=== PATIENT | male | born 1935 | race Caucasian/White ===

== ENCOUNTER 2017-07-01 09:46 | Emergency (ER) | payer MEDICARE, OTHER ==
[2017-07-01] MEDS ORDERED: Nitroglycerin/D5W 25 MG/250 ML BOTTLE IV SCH (10:00)
--- NOTE | 2017-07-01 10:01 | EDM.PDOC ---
ED HPI GENERAL MEDICAL PROBLEM - General Chief Complaint: Cardiovascular Problem Stated Complaint: PAIN DOWN LT SHOULDER/ARM Time Seen by Provider: 07/01/17 09:50 Source of Information: Reports: Patient, Family History Limitations: Reports: No Limitations - History of Present Illness INITIAL COMMENTS - FREE TEXT/NARRATIVE: 82-year-old male with known coronary vascular disease and peripheral artery disease presents with upper chest pain radiating to the throat and left arm off and on for the past couple of days but more persistent this morning. He thought it was musculoskeletal initially, but this morning he took some nitroglycerin and it helped. The pain then resumed at a level of 6-7 out of 10. No significant shortness of breath or diaphoresis. His pro-time 6 days ago was 1.8 INR. No medication adjustments were done. He denies nausea or vomiting. Onset: Unknown/Unsure (Waxing and waning for several days) Location: Reports: Chest, Upper Extremity, Left Quality: Reports: Ache Severity: Moderate Improves with: Reports: Other (Nitroglycerin helped this morning) Associated Symptoms: Reports: Chest Pain. Denies: Confusion, Cough, Nausea/ Vomiting Left Arm Pain Score (Numeric/FACES): 7 - Related Data Allergies Allergy/AdvReac Type Severity Reaction Status Date / Time bee venom protein (honey bee) Allergy Anaphylactic Verified 07/01/17 09:59 Shock Penicillins Allergy Swelling Verified 07/01/17 09:59 Sulfa (Sulfonamide Allergy Swelling Verified 07/01/17 09:59 Antibiotics) Home Meds: Home Meds Clopidogrel Bisulfate [Clopidogrel] 75 mg pe PO DAILY 07/01/17 [History] Lisinopril [Lisinopril] 40 mg PO DAILY 07/01/17 [History] Metoprolol Tartrate [Metoprolol Tartrate] 25 mg PO BID 07/01/17 [History] Omeprazole 20 mg PO DAILY 07/01/17 [History] Simvastatin [Zocor] 40 mg PO BEDTIME 07/01/17 [History] Spironolactone [Aldactone] 25 mg PO DAILY 07/01/17 [History] Warfarin Sodium [Coumadin] 7.5 mg PO ASDIRECTED 07/01/17 [History] Warfarin [Coumadin] 5 mg PO ASDIRECTED 07/01/17 [History] glipiZIDE [Glucotrol] 10 mg PO DAILY 07/01/17 [History] metFORMIN [Glucophage] 1,000 mg PO BID 07/01/17 [History] ED ROS GENERAL - Review of Systems Review Of Systems: See Below Constitutional: Denies: Fever, Chills, Malaise HEENT: Reports: No Symptoms Respiratory: Denies: Shortness of Breath, Cough Cardiovascular: Denies: Palpitations GI/Abdominal: Denies: Abdominal Pain, Nausea, Vomiting : Reports: No Symptoms Musculoskeletal: Reports: Arm Pain Skin: Reports: Bruising (some bruising on his extremities) Neurological: Reports: No Symptoms. Denies: Dizziness, Headache Psychiatric: Reports: No Symptoms ED EXAM, GENERAL - Physical Exam Exam: See Below Exam Limited By: No Limitations General Appearance: Alert, No Apparent Distress Eye Exam: Bilateral Eye: EOMI, Normal Inspection Respiratory/Chest: No Respiratory Distress, Lungs Clear, Other (I could not reproduce any chest wall tenderness) Cardiovascular: Regular Rate, Rhythm GI/Abdominal: Soft, Non-Tender Extremities: Normal Inspection. No: Pedal Edema Neurological: Alert, Oriented Psychiatric: Normal Affect, Normal Mood Skin Exam: Warm, Dry, Other (some bruising on the left arm which is old) EKG INTERPRETATION QRS: LBBB Comparison: No Change (EKG is unchanged from one year ago) Course - Vital Signs Last Recorded V/S: Last Vital Signs Temp 96.1 F 07/01/17 09:52 Pulse 59 L 07/01/17 10:30 Resp 16 07/01/17 10:30 BP 160/70 H 07/01/17 10:30 Pulse Ox 97 07/01/17 10:30 - Orders/Labs/Meds Orders: Active Orders 24 hr Category Date Time Status EKG Documentation Completion [RC] ASDIRECTED Care 07/01/17 09:57 Active EKG 12 Lead [EK] Routine Ther 07/01/17 09:57 Ordered Labs: Laboratory Tests 07/01/17 07/01/17 07/01/17 Range/Units 10:03 10:03 10:03 WBC 8.5 (4.5-11.0) K/uL RBC 4.68 (4.30-5.90) M/uL Hgb 13.5 (12.0-15.0) g/dL Hct 39.9 L (40.0-54.0) % MCV 85 (80-98) fL MCH 29 (27-31) pg MCHC 34 (32-36) % Plt Count 221 (150-400) K/uL Neut % (Auto) 69 H (36-66) % Lymph % (Auto) 18 L (24-44) % Ada % (Auto) 10 H (2-6) % Eos % (Auto) 3 (2-4) % Baso % (Auto) 1 (0-1) % PT 28.1 H (9.5-12.0) sec INR 2.53 H (0.80-1.20) Sodium 140 (140-148) mmol/L Potassium 4.4 (3.6-5.2) mmol/L Chloride 104 (100-108) mmol/L Carbon Dioxide 30 (21-32) mmol/L Anion Gap 6.3 (5.0-14.0) mmol/L BUN 22 H (7-18) mg/dL Creatinine 1.1 (0.8-1.3) mg/dL Est Cr Clr Drug Dosing 50.09 mL/min Estimated GFR (MDRD) > 60 (>60) Glucose 200 H (74-106) mg/dL Calcium 8.9 (8.5-10.1) mg/dL Total Bilirubin 0.3 (0.2-1.0) mg/dL AST 12 L (15-37) U/L ALT 16 (12-78) U/L Alkaline Phosphatase 79 (46-116) U/L Troponin I < 0.017 (0.000-0.056) ng/mL Total Protein 7.5 (6.4-8.2) g/dL Albumin 3.5 (3.4-5.0) g/dL Globulin 4.0 H (2.3-3.5) g/dL Albumin/Globulin Ratio 0.9 L (1.2-2.2) Meds: Medications Discontinued Medications Generic Name Dose Route Start Last Admin Trade Name Freq PRN Reason Stop Dose Admin Nitroglycerin/Dextrose 25 mg in 250 mls @ 6 mls/hr 07/01/17 10:00 07/01/17 10 :09 Nitroglycerin 25 Mg/D5w 250 Ml IV 10 mcg/min TITRATE JORDANA 6 mls/hr Protocol Administration 10 MCG/MIN - Re-Assessments/Exams Free Text/Narrative Re-Assessment/Exam: 07/01/17 10:21 Systolic blood pressure was over 160, and because his pain was persisting and nitroglycerin seemed to help earlier a nitro drip at 10 mcg/m was initiated. CBC , CMP and troponin were obtained as well as an INR. 07/01/17 10:43 INR returned therapeutic at 2.5. Troponin was 0.0. The nitroglycerin drip did nothing for his discomfort, and again he felt like it improved if he lifted up his arm. He feels like the symptoms are very similar to when he had carpal tunnel. 07/01/17 10:45 I had a long discussion with the patient and his , I do not think he meets the criteria for an angiogram and his symptoms have already been waxing and waning for days and his troponin is 0. He has no other cardiac symptoms such as dyspnea, diaphoresis or nausea so I'm going to discharge him with 10 hydrocodone to take as needed for extra pain control and asked him to return at any time if he worsens. They're comfortable with the plan. Departure - Departure Time of Disposition: 11:19 Disposition: Home, Self-Care 01 Condition: Good Clinical Impression: Neuropathic pain, arm Instructions: Neuropathic Pain Referrals: PCP,None [Primary Care Provider] - Forms: ED Department Discharge Care Plan Goals: Continue your regular medications and add stronger pain medication as needed. Return anytime if worsening such as shortness of breath, diaphoresis or increased chest pain. - My Orders Last 24 Hours: My Active Orders 07/01/17 09:57 EKG Documentation Completion [RC] ASDIRECTED EKG 12 Lead [EK] Routine - Assessment/Plan Last 24 Hours: My Active Orders 07/01/17 09:57 EKG Documentation Completion [RC] ASDIRECTED EKG 12 Lead [EK] Routine
[2017-07-01 10:31] VITALS: BP 160/70
== END 2017-07-01 11:00 | disposition home or self-care (01) ==
LOC: JP.ED 09:46
DX: G62.9 Polyneuropathy, unspecified (principal); Z79.02 Long term (current) use of antithrombotics/antiplatelets; Z79.01 Long term (current) use of anticoagulants; Z79.84 Long term (current) use of oral hypoglycemic drugs; Z79.899 Other long term (current) drug therapy; Z88.0 Allergy status to penicillin; Z88.2 Allergy status to sulfonamides; Z91.018 Allergy to other foods
CPT/HCPCS: 36415; 80053; 84484; 85025; 85610; 93005; 93010; 96365; 99284; 99284-25

== ENCOUNTER 2017-07-05 17:01 | Emergency (ER) | payer MEDICARE, OTHER ==
[2017-07-05 17:26] VITALS: BP 164/73
[2017-07-05] MEDS ORDERED: Ketorolac 30 MG/ML SDV IM ONE (17:27)
--- NOTE | 2017-07-05 17:33 | EDM.PDOC ---
ED HPI GENERAL MEDICAL PROBLEM - General Chief Complaint: Upper Extremity Injury/Pain Stated Complaint: L ARM SHOULDER PAIN Time Seen by Provider: 07/05/17 17:19 Source of Information: Reports: Patient, RN Notes Reviewed History Limitations: Reports: No Limitations - History of Present Illness INITIAL COMMENTS - FREE TEXT/NARRATIVE: 82-year-old gentleman presents emergency department today with complaint of left arm pain and back pain he was in the emergency department early this week evaluated for chest pain and left arm pain because of his history of coronary artery disease, workup was negative the pain still remains he denies any numbness and tingling but he is specific about his point tenderness Left Arm Pain Score (Numeric/FACES): 9 - Related Data Allergies Allergy/AdvReac Type Severity Reaction Status Date / Time bee venom protein (honey bee) Allergy Anaphylactic Verified 07/05/17 17:11 Shock Penicillins Allergy Swelling Verified 07/05/17 17:11 Sulfa (Sulfonamide Allergy Swelling Verified 07/05/17 17:11 Antibiotics) Home Meds: Home Meds Clopidogrel Bisulfate [Clopidogrel] 75 mg pe PO DAILY 07/01/17 [History] Lisinopril [Lisinopril] 40 mg PO DAILY 07/01/17 [History] Metoprolol Tartrate [Metoprolol Tartrate] 25 mg PO BID 07/01/17 [History] Omeprazole 20 mg PO DAILY 07/01/17 [History] Simvastatin [Zocor] 40 mg PO BEDTIME 07/01/17 [History] Spironolactone [Aldactone] 25 mg PO DAILY 07/01/17 [History] Warfarin Sodium [Coumadin] 7.5 mg PO ASDIRECTED 07/01/17 [History] Warfarin [Coumadin] 5 mg PO ASDIRECTED 07/01/17 [History] glipiZIDE [Glucotrol] 10 mg PO DAILY 07/01/17 [History] metFORMIN [Glucophage] 1,000 mg PO BID 07/01/17 [History] Past Medical History HEENT History: Reports: Cataract Cardiovascular History: Reports: Angina, CAD, Heart Failure, High Cholesterol, Hypertension, [place], PVD, Stents Other Cardiovascular History: 5 stents Gastrointestinal History: Reports: Diverticulosis Genitourinary History: Reports: Prostate Disorder, Renal Calculus Musculoskeletal History: Reports: Fracture Neurological History: Reports: CVA Endocrine/Metabolic History: Reports: Diabetes, Type II Hematologic History: Reports: Anticoagulation Therapy - Past Surgical History HEENT Surgical History: Reports: Cataract Surgery, Tonsillectomy Cardiovascular Surgical History: Reports: Coronary Artery Stent, Percutaneous Transluminal Angioplasty GI Surgical History: Reports: Appendectomy, Colonoscopy, Hernia, Inguinal Male Surgical History: Reports: Kidney Stone Extraction, Renal Calculus, TURP -Transurethral Resection of Prostate Musculoskeletal Surgical History: Reports: Carpal Tunnel Social & Family History - Tobacco Use Smoking Status *Q: Unknown Ever Smoked Used Tobacco, but Quit: Yes Month Tobacco Last Used: 1973 - Caffeine Use Caffeine Use: Reports: Coffee - Recreational Drug Use Recreational Drug Use: No Review of Systems - Review of Systems Review Of Systems: See Below Respiratory: Reports: No Symptoms Cardiovascular: Reports: No Symptoms GI/Abdominal: Reports: No Symptoms Musculoskeletal: Reports: Arm Pain, Back Pain Skin: Reports: No Symptoms ED EXAM, GENERAL - Physical Exam Exam: See Below Exam Limited By: No Limitations General Appearance: Alert, WD/WN, No Apparent Distress Respiratory/Chest: No Respiratory Distress Back Exam: Normal Inspection, Vertebral Tenderness (T3 level) Course - Vital Signs Last Recorded V/S: Last Vital Signs Temp 95.8 F 07/05/17 17:05 Pulse 71 07/05/17 17:05 Resp 15 07/05/17 17:05 BP 164/73 H 07/05/17 17:05 Pulse Ox 97 07/05/17 17:05 - Orders/Labs/Meds Orders: Active Orders 24 hr Category Date Time Status Thoracic Spine 3V [CR] Stat Exams 07/05/17 17:27 Taken Meds: Medications Discontinued Medications Generic Name Dose Route Start Last Admin Trade Name Raven PRN Reason Stop Dose Admin Ketorolac Tromethamine 30 mg 07/05/17 17:27 07/05/17 17:39 Toradol IM 07/05/17 17:28 30 mg ONETIME ONE Administration Departure - Departure Time of Disposition: 18:16 Disposition: Home, Self-Care 01 Condition: Fair Clinical Impression: Neuropathic pain, arm - Discharge Information Referrals: Anjel Daniels MD [Primary Care Provider] - Forms: ED Department Discharge Additional Instructions: Please followup with your primary care provider in 3-5 days if not better, please call return to the emergency department with worsening of symptoms. - My Orders Last 24 Hours: My Active Orders 07/05/17 17:27 Thoracic Spine 3V [CR] Stat - Assessment/Plan Last 24 Hours: My Active Orders 07/05/17 17:27 Thoracic Spine 3V [CR] Stat Plan: Assessment Acuity = acute Site and laterality = left shoulder pain Etiology = unclear etiology Manifestations = none Location of injury = Home Lab values = plain film thoracic spine I did review films myself I cannot appreciate any acute process, the official read from radiology is pending Plan He had some relief from the Toradol injection provided plan is to him for follow -up to his primary care provider in next 3-5 days for reevaluation Patient was in agreement with the plan all questions were answered, they were instructed to return to the emergency department or call for worsening symptoms. This note was dictated using [employer] voice recognition software please call with any questions.
--- NOTE | 2017-07-06 09:12 | CR ---
Thoracic Spine 3V HISTORY: Pain COMPARISON: None FINDINGS: Mild superior endplate depression of the T2 vertebral body seen on the third image. This is age indeterminate. Mild diffuse degenerative change with marginal osteophytes. No subluxation. Impression: 10% superior endplate compression deformity of T2 age indeterminate. If indicated MRI scan could be c onsidered to evaluate for more recent compression.
== END 2017-07-05 18:45 | disposition home or self-care (01) ==
LOC: JP.ED 17:01
DX: G62.9 Polyneuropathy, unspecified (principal); I25.119 Atherosclerotic heart disease of native coronary artery with unspecified angina pectoris; I11.0 Hypertensive heart disease with heart failure; I50.9 Heart failure, unspecified; I25.2 Old myocardial infarction; E78.00 Pure hypercholesterolemia, unspecified; I73.9 Peripheral vascular disease, unspecified; E11.9 Type 2 diabetes mellitus without complications; Z88.0 Allergy status to penicillin; Z88.2 Allergy status to sulfonamides; Z91.018 Allergy to other foods; Z79.01 Long term (current) use of anticoagulants; Z79.02 Long term (current) use of antithrombotics/antiplatelets; Z79.84 Long term (current) use of oral hypoglycemic drugs; Z79.899 Other long term (current) drug therapy; Z86.73 Personal history of transient ischemic attack (TIA), and cerebral infarction without residual deficits; Z87.442 Personal history of urinary calculi; Z98.49 Cataract extraction status, unspecified eye; Z95.5 Presence of coronary angioplasty implant and graft; Z90.49 Acquired absence of other specified parts of digestive tract; Z98.890 Other specified postprocedural states
CPT/HCPCS: 72072; 96372; 99284; J1885; 99283

== ENCOUNTER 2021-06-16 11:04 | Emergency (ER) | payer MEDICARE, OTHER ==
--- NOTE | 2021-06-16 11:45 | EDM.PDOC ---
ED HPI GENERAL MEDICAL PROBLEM - General Chief Complaint: Chest Pain Stated Complaint: [facility] Time Seen by Provider: 06/16/21 11:15 Source of Information: Reports: Patient, EMS History Limitations: Reports: No Limitations - History of Present Illness INITIAL COMMENTS - FREE TEXT/NARRATIVE: 86-year-old male was out fishing this morning when he got stung on the tip of the ring finger on the left hand. 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 This has happened to him in the past. Both hands started itching, he became short of breath with palpitations and chest tightness. He went searching for an EpiPen and could not find one and finally had to borrow 1 from a neighbor. By that time the ambulance was called, when they arrived he was starting to improve. Initially his O2 saturations were only in the low 90s so he was given high flow oxygen, lungs had cleared and his chest pressure was almost gone by the time he arrived to the emergency room. fiber glass worker showed sinus rhythm, EKG was done on arrival and showed left bundle branch block consistent and almost identical to an EKG done 4 years ago. His ring was removed. Onset: Sudden Duration: Hour(s): (1 hour ago) Location: Reports: Upper Extremity, Left Quality: Reports: Burning, Dull, Pressure Associated Symptoms: Reports: Chest Pain, Malaise, Shortness of Breath, Weakness, Other (Palpitations). 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, EKG, Nitroglycerin Middle Chest Pain Score (Numeric/FACES): 2 - Related Data Allergies Allergy/AdvReac Type Severity Reaction Status Date / Time bee venom protein (honey bee) Allergy Anaphylactic Verified 06/16/21 11:20 Shock Penicillins Allergy Swelling Verified 06/16/21 11:20 Sulfa (Sulfonamide Allergy Swelling Verified 06/16/21 11:20 Antibiotics) Home Meds: Home Meds Clopidogrel Bisulfate [Clopidogrel] 75 mg pe PO DAILY 07/01/17 [History] Lisinopril 40 mg PO DAILY 07/01/17 [History] Metoprolol Tartrate 25 mg PO BID 07/01/17 [History] Omeprazole 20 mg PO DAILY 07/01/17 [History] Simvastatin [Zocor] 40 mg PO BEDTIME 07/01/17 [History] Spironolactone [Aldactone] 25 mg PO DAILY 07/01/17 [History] Warfarin Sodium [Coumadin] 7.5 mg PO ASDIRECTED 07/01/17 [History] Warfarin [Coumadin] 5 mg PO ASDIRECTED 07/01/17 [History] glipiZIDE [Glucotrol] 10 mg PO DAILY 07/01/17 [History] metFORMIN [Glucophage] 1,000 mg PO BID 07/01/17 [History] Aspirin 81 mg PO DAILY 06/16/21 [History] Past Medical History HEENT History: Reports: Cataract Cardiovascular History: Reports: Angina, CAD, Heart Failure, High Cholesterol, Hypertension, [place], PVD, Stents Other Cardiovascular History: 5 stents Gastrointestinal History: Reports: Diverticulosis Genitourinary History: Reports: Prostate Disorder, Renal Calculus Musculoskeletal History: Reports: Fracture Neurological History: Reports: CVA Endocrine/Metabolic History: Reports: Diabetes, Type II Hematologic History: Reports: Anticoagulation Therapy - Past Surgical History HEENT Surgical History: Reports: Cataract Surgery, Tonsillectomy Cardiovascular Surgical History: Reports: Coronary Artery Stent, Percutaneous Transluminal Angioplasty GI Surgical History: Reports: Appendectomy, Colonoscopy, Hernia, Inguinal Male Surgical History: Reports: Kidney Stone Extraction, Renal Calculus, TURP-Transurethral Resection of Prostate Musculoskeletal Surgical History: Reports: Carpal Tunnel Social & Family History - Tobacco Use Tobacco Use Status *Q: Never Tobacco User - Caffeine Use Caffeine Use: Reports: Coffee - Recreational Drug Use Recreational Drug Use: No ED ROS GENERAL - Review of Systems Review Of Systems: See Below Constitutional: Reports: Malaise. Denies: Fever, Chills HEENT: Reports: Other (Continues to see "flashing lights") Respiratory: Reports: Shortness of Breath, Wheezing Cardiovascular: Reports: Chest Pain (Mostly pressure sensation) GI/Abdominal: Reports: No Symptoms. Denies: Nausea, Vomiting Skin: Reports: Other (Developing erythema of the hands and waistline) Neurological: Reports: Tingling, Weakness. Denies: Headache Psychiatric: Reports: No Symptoms ED EXAM, GENERAL - Physical Exam Exam: See Below Exam Limited By: No Limitations General Appearance: Alert, No Apparent Distress (Patient is markedly improving) Eye Exam: Bilateral Eye: Normal Inspection Head: Atraumatic Neck: Supple, Non-Tender Respiratory/Chest: Lungs Clear Cardiovascular: Regular Rate, Rhythm. No: Extra Beats GI/Abdominal: Soft, Non-Tender Extremities: Normal Inspection. No: Pedal Edema Neurological: Alert, Oriented Skin Exam: Warm, Dry, Erythema (Patient does have some erythema developing on the ring finger on the left hand where he was stung, but also on the lower abdomen and a few patches on the proximal thighs) Course - Vital Signs Last Recorded V/S: Last Vital Signs Temp 97.3 F 06/16/21 11:28 Pulse 64 06/16/21 12:21 Resp 16 06/16/21 12:21 BP 102/44 L 06/16/21 12:21 Pulse Ox 96 06/16/21 12:21 - Orders/Labs/Meds Orders: Active Orders 24 hr Category Date Time Status EKG 12 Lead [EK] Routine Ther 06/16/21 11:39 Ordered - Re-Assessments/Exams Free Text/Narrative Re-Assessment/Exam: 06/16/21 11:44 EKG was done which was normal for patient, it is identical to 4 years ago. Hypoxia had resolved, patient was able to maintain sats in the mid 90s on room air and did not feel short of breath, other than "flashing lights" he felt back to normal. He will be monitored. 06/16/21 13:52 After 45 minutes of monitoring the patient was back to baseline, all symptoms had resolved and his vitals were normal. He still had a little bit of puffiness and pain in the finger but that was his only symptom. He was discharged. Departure - Departure Time of Disposition: 12:24 Disposition: Home, Self-Care 01 Clinical Impression: Allergic reaction to bee sting - Discharge Information Instructions: Bee, Wasp, or Hornet Sting, Adult Referrals: Anjel Daniels MD [Primary Care Provider] - Forms: ED Department Discharge Care Plan Goals: Continue current medications, Benadryl once or twice in the next 24 hours may be beneficial if you have any persistent itching or rash. Return anytime if worsening such as shortness of breath or persistent pain. Fill EpiPen prescription and use as directed. Sepsis Event Note (ED) - Evaluation Sepsis Screening Result: No Definite Risk - Focused Exam Vital Signs: Vital Signs Temp Pulse Resp BP Pulse Ox 06/16/21 12:21 64 16 102/44 L 96 06/16/21 11:28 97.3 F 68 12 102/40 L 94 L 06/16/21 11:14 97.3 F 68 12 102/40 L 94 L - My Orders Last 24 Hours: My Active Orders 06/16/21 11:39 EKG 12 Lead [EK] Routine - Assessment/Plan Last 24 Hours: My Active Orders 06/16/21 11:39 EKG 12 Lead [EK] Routine
[2021-06-16 12:22] VITALS: BP 102/44; PULSE 64
== END 2021-06-16 12:24 | disposition home or self-care (01) ==
LOC: JP.ED 11:04
DX: T63.441A Toxic effect of venom of bees, accidental (unintentional), initial encounter (principal); I25.119 Atherosclerotic heart disease of native coronary artery with unspecified angina pectoris; I11.0 Hypertensive heart disease with heart failure; I50.9 Heart failure, unspecified; E78.00 Pure hypercholesterolemia, unspecified; I25.2 Old myocardial infarction; Z95.5 Presence of coronary angioplasty implant and graft; Z86.73 Personal history of transient ischemic attack (TIA), and cerebral infarction without residual deficits; Z91.030 Bee allergy status; Z88.0 Allergy status to penicillin; Z88.2 Allergy status to sulfonamides; Z79.02 Long term (current) use of antithrombotics/antiplatelets; Z79.899 Other long term (current) drug therapy; Z79.01 Long term (current) use of anticoagulants; Z79.82 Long term (current) use of aspirin
CPT/HCPCS: 93005; 99284-25

== ENCOUNTER 2022-06-22 18:13 | Emergency (ER) | payer MEDICARE, OTHER ==
[2022-06-22 19:46] VITALS: BP 139/67; PULSE 87
== END 2022-06-22 21:08 | disposition home or self-care (01) ==
LOC: JP.ED 18:13
DX: U07.1 COVID-19 (principal); I25.119 Atherosclerotic heart disease of native coronary artery with unspecified angina pectoris; E78.00 Pure hypercholesterolemia, unspecified; I11.0 Hypertensive heart disease with heart failure; I50.9 Heart failure, unspecified; I25.2 Old myocardial infarction; Z95.5 Presence of coronary angioplasty implant and graft; Z91.030 Bee allergy status; Z88.0 Allergy status to penicillin; Z88.2 Allergy status to sulfonamides; Z79.899 Other long term (current) drug therapy; Z86.73 Personal history of transient ischemic attack (TIA), and cerebral infarction without residual deficits; Z87.891 Personal history of nicotine dependence; Z79.01 Long term (current) use of anticoagulants; Z79.84 Long term (current) use of oral hypoglycemic drugs
CPT/HCPCS: 99284; U0002